=== PATIENT | female | born 1990 | race Caucasian/White ===

== ENCOUNTER 2016-05-14 12:05 | Emergency (ER) | payer OTHER ==
[~2016-05-14 12:05] MED LIST: DIPH25TA PO; DOCU100C8 PO; IBUP400T22 PO; MAGN300S PO; MUPI15CR TOP; NEOM10SO4 OT; ONDA4TAB9 PO; PHEN32.417 PO; POLY17PO2 PO; RANI150C4 PO
[2016-05-14 12:18] VITALS: BP 117/46; PULSE 93; RESP 18; O2SAT 97
[2016-05-14 13:36] LABS: BASOPHILS % (AUTO) 0.2 % (0-3); EOSINOPHILS % (AUTO) 2.4 % (0-5); MONOCYTES % (AUTO) 12.9 % (4-12); Mean Corpuscular Hemoglobin 31.3 pg (27.0-35.0); Mean Corpuscular Volume 93.5 fL (81-100); Platelet Count 283 bil/L (150-400)
[2016-05-14 13:51] LABS: APPEARANCE,URINE SLIGHTLY CLOUDY (CLEAR,HAZY); COLOR,URINE STRAW (YELLOW)
[2016-05-14 13:52] LABS: OCCULT BLOOD,URINE MODERATE (NEGATIVE); PH,URINE 8.5 (5.0-8.0); UROBILINOGEN,URINE NORMAL (NORMAL)
--- NOTE | 2016-05-14 13:52 | DRSVH ---
PROCEDURE: X-RAY CHEST ONE VIEW, PORTABLE ([id number]) INDICATIONS: multiple seizures, eval for underlying infection TECHNIQUE: One view of the chest was acquired. COMPARISON: None. FINDINGS: Surgical changes and devices: None. Lungs and pleura: No pleural effusions or pneumothorax. Lungs are clear. Mediastinum: Mediastinal contours appear normal. Heart size is normal. Bones and chest wall: No suspicious bony lesions. Overlying soft tissues appear unremarkable. IMPRESSION: No acute cardiopulmonary findings. Dictated by: Ellen Maza M.D. on 05/14/2016 at 13:50 Approved by: Ellen Maza M.D. on 05/14/2016 at 13:50
--- NOTE | 2016-05-14 14:01 | ED.REPORT ---
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 Mother also reports multiple seizure episodes since her arrival in the department today. Additionally, she notes urinary frequency, and foul smelling urine. Recently the patient was on a course of azithromycin. Nursing Notes Stated Complaint: SEIZURE Chief Complaint: Seizure Nursing Notes Reviewed: Yes Allergies: Coded Allergies: lorazepam (Verified Allergy, Mild, 09/20/15) Uncoded Allergies: CT CONTRAST (Allergy, Unknown, 09/20/15) Scheduled Levetiracetam Liquid (Keppra Liquid) 100 Mg/Ml Soln 500 MG PO BID Mupirocin Cream (Bactroban Cream) 15 Gm Cream..g. 1 APPL TOP TID Neomycin/Polymyxin B Sulf/Hc (Cortisporin Ear Solution) 10 Ml Solution 10 ML OT TID Phenobarbital (Phenobarbital) 32.4 Mg Tablet 32.4 MG PO DAILY Ranitidine (Ranitidine) 150 Mg Capsule 150 MG PO DAILY Sulfamethoxazole/Trimethoprim Susp (Bactrim 800-160 mg/20 ml Nayana) 800 Mg-160 Mg/ 20 Ml Oral.susp 20 ML PO BID Scheduled PRN Diphenhydramine HCl (Benadryl Allergy) 25 Mg Tablet 25 MG PO Q4 PRN PRN For Itching Docusate Sodium (Docusate Sodium) 100 Mg Capsule 100 MG PO DAILY PRN PRN For Constipation Ibuprofen (Ibuprofen) 400 Mg Tablet 400 MG PO QID PRN PRN For Pain Magnesium Citrate (Citrate of Magnesia) 300 Ml Solution 15 ML PO BID PRN PRN CONSTIPATION Ondansetron ODT (Zofran ODT) 4 Mg Tablet 4 MG PO Q4H PRN PRN For Nausea Polyethylene Glycol 3350 (Polyethylene Glycol 3350) 17 Gm Powd.pack 17 GM PO DAILY PRN PRN For Constipation General Time Seen by Provider: 14:00 Chief Complaint Chief Complaint: Seizure, generalized Hx Obtained From: Other family... (Mother) Arrived By: Ambulance Onset Occurred: Just prior to arrival Symptom Duration: Intermittent Related History: Reports: Developmental abnormality (Angelman syndrome), Known seizure disorder Similar Sx Previous: Yes Past Medical History Past Medical History Notes: PCP: Dr. Rebollar Pt seen in ED 08/30 an 09/02/15 for abd symptoms and probable constipation Past Medical History Angelman syndrome Seizures Significant developmental delay Chronic constipation Reports: Depression Past Surgical History Report none Smoking History Never Smoker Social History Alcohol Use: Denies alcohol use Drug Use: Denies drug use Ambulatory Status Wheelchair Review of Systems ROS is limited due to patient's developmental delay. Neurologic: Reports: Seizure Complete sys rev & neg: except as marked. Female: Reports: Urinary frequency Physical Exam Physical examination limited due to patient's developmental delay. Initial Vital Signs Vital Signs (First) Date Time Temp Pulse Resp B/P Pulse Ox O2 Delivery O2 Flow Rate FiO2 05/14/16 12:18 37.2 93 18 117/46 97 Room Air Initial VS: Reviewed Head / Eyes: Atraumatic, Normocephalic Abdomen / GI: Soft, Non-tender, No guarding, No rebound, No distention Extremities: Vascular intact, Neuro intact, No swelling, No tenderness Skin: Warm, Dry, No cyanosis General/Constitutional: Awake, Alert, Well nourished Neck: Supple, No meningismus, Full range of motion, No swelling, Non-tender Respiratory / Chest: Breath sounds NL, Breath sounds = bilat, No respiratory distress, No rales, No rhonchi, No wheezing Cardiovascular: Heart rate NL, Regular rhythm, Heart sounds NL, Peripheral circulation NL NEUROLOGIC: Patient at baseline, per mother. Transient 2 -second episode that Mother called seizure, with no post-ictal phase. Interpretation & Diagnostics Lab Results Interpretation Result Diagram: 05/14/16 1320 05/14/16 1320 Test 05/14/16 13:20 05/14/16 13:29 05/14/16 13:36 White Blood Count 4.2th/mm3 (3.8-10.1) Red Blood Count 4.44mil/mm3 (3.90-5.20) Hemoglobin 13.9g/dL (12.0-15.6) Hematocrit 41.5% (35.0-46.0) Mean Corpuscular Volume 93.5fL (81-100) Mean Corpuscular Hemoglobin 31.3pg (27.0-35.0) Mean Corpuscular Hemoglobin Concent 33.5% (32.0-37.0) Red Cell Distribution Width 12.4% (12.3-15.4) Platelet Count 283bil/L (150-400) Neutrophils (%) (Auto) 37.0% (40-74) Lymphocytes (%) (Auto) 47.0% (14-46) Monocytes (%) (Auto) 12.9% (4-12) Eosinophils (%) (Auto) 2.4% (0-5) Basophils (%) (Auto) 0.2% (0-3) Sodium Level 145mEq/L (134-144) Potassium Level 3.7mEq/L (3.5-5.2) Chloride Level 101mEq/L (97-108) Carbon Dioxide Level 30mmol/L (18-29) Blood Urea Nitrogen 9mg/dL (6-20) Creatinine 0.50mg/dL (0.57-1.00) Estimat Glomerular Filtration Rate 215mL/min (>59) Glucose Level 90mg/dL (60-99) Calcium Level 9.2mg/dL (8.5-10.1) Total Bilirubin 0.2mg/dL (0.0-1.2) Aspartate Amino Transf (AST/SGOT) 14U/L (0-50) Alanine Aminotransferase (ALT/SGPT) 15U/L (0-32) Alkaline Phosphatase 82U/L (25-150) Total Protein 7.4g/dL (6.4-8.4) Albumin 4.3g/dL (3.4-5.0) Phenobarbital Level 46.5ug/mL (15.0-40.0) Hold Mtz Top Tube Received (Received) Urine Color Straw (YELLOW) Urine Appearance Slightly cloudy Urine pH 8.5 (5.0-8.0) Urine Specific [place] 1.015 (1.003-1.035) Urine Protein Negativemg/dL (NEG,TRACE) Urine Glucose (UA) Negativemg/dL (NEGATIVE) Urine Ketones Negativemg/dL (NEGATIVE) Urine Occult Blood Moderate (NEGATIVE) Urine Nitrite Negative (NEGATIVE) Urine Bilirubin Negative (NEGATIVE) Urine Urobilinogen Normalmg/dL (NORMAL) Urine Leukocyte Esterase Small (NEGATIVE) Urine RBC 0-2/hpf (0-2) Urine WBC 6-10/hpf (0-5) Urine Epithelial Cells Occasional/hpf (NONE-MOD) Urine Crystals None seen (NONE SEEN) Urine Bacteria Moderate/hpf (NONE-FEW) Urine Hyaline Casts None/lpf (NONE) Urine Granular Casts None seen (NONE SEEN) Urine Waxy Casts None seen (NONE SEEN) Urine Red Blood Cell Casts None seen (NONE SEEN) Urine White Blood Cell Casts None seen (NONE SEEN) Urine Mucus None seen (None Seen) Urine Trichomonas None seen (NONE SEEN) Urine Yeast None (NONE SEEN) Urinalysis Comment None Urine Culture Reflexed Indicated X-Ray Chest Interpretation Chest Xray Interpretation: IMPRESSION: No acute cardiopulmonary findings. Dictated by: Ellen Maza M.D. on 05/14/2016 at 13:50 Approved by: Ellen Maza M.D. on 05/14/2016 at 13:50 View: Portable, 1 view Interpretation / Wet Read by: Interpret - Radiologist Re-Eval/Medical Decision Med Decision/Clinical Course Well-known seizure history with history of seizures, potentially urinary tract infection as found on a catheterized UA specimen. Patient will be also started on Keppra due to probable breakthrough seizures is not status epilepticus. Bactrim prescribed as well. Return precautions given. Source of Hx: Old records Re-Evaluation/Progress #1: Time of Eval: 14:21 Re-Evaluation/Progress Note: Discussed lab and radiology results with patient's mother. Re-Evaluation/Progress #2: Time of Eval: 14:41 Re-Evaluation/Progress Note: Discussed consult with Dr. Gomez, Neurology, and plan to discharge. Mother understands and agrees to the plan. Return precautions given. All other questions addressed. Consultation : Referral / Consult Name: Serge Gomez MD Consulted With: Neurology Call Returned at: 14:39 Note: Give Keppra 1g, then 500mg bid. Counseled Regarding: Diagnosis, Lab results, Need for follow-up, When/why to return to ED Discharge & Departure Impression: Primary Impression: UTI (urinary tract infection) Additional Impression: Seizure Disposition: Home Discharge Condition All VS Reviewed: Yes Condition: Stable Additional Instructions: Use Keppra to help prevent further seizures. Use Bactrim for UTI. Return to the ER for persistent, uncontrollable seizures without return to normal baseline , high fever, persistent vomiting, or other concerns. Referrals: Marquita Khan PA-C (PCP) Scribe Attestation Portions of this note were transcribed by Say Zamora. I, Dr. Sanders, personally performed the history, physical exam and medical decision-making; I reviewed and confirmed the accuracy of the information in the transcribed note. Signed by: Miriam Jarrell, 05/14/2016 and 14:57. copies to: Marquita Khan PA-C, Timothy S DO May 14, 2016 14:01 SAY ZAMORA May 14, 2016 14:14
[2016-05-14] MEDS ORDERED: Trimeth-Sulfa 160-800 mg/20 mL - 20 mL Suspension PO ONE (14:45)
[2016-05-14] MEDS ORDERED: SULF20OR7 PO (14:55)
[2016-05-14] MEDS ORDERED: LEVE100S PO (14:55)
[2016-05-14 15:20] VITALS: BP 116/68; PULSE 78; RESP 18; O2SAT 99
[2016-05-14 15:57] VITALS: BP 116/68; PULSE 78; RESP 18; O2SAT 99
== END 2016-05-14 15:58 | disposition home or self-care (01) ==
LOC: SED 12:05 → EDBD 12:05 → SED 15:58
DX: N39.0 Urinary tract infection, site not specified (principal); R56.9 Unspecified convulsions; Z88.8 Allergy status to other drugs, medicaments and biological substances

== ENCOUNTER 2016-05-28 16:19 | Emergency (ER) | payer OTHER ==
[~2016-05-28] VITALS: Ht 144.8 cm; Wt 50.0 kg
[~2016-05-28 16:19] MED LIST changes: +LEVE100S PO; +SULF20OR7 PO
[2016-05-28 16:23] VITALS: BP 128/72; PULSE 88; RESP 16; O2SAT 98
--- NOTE | 2016-05-28 16:35 | ED.REPORT ---
HPI- Female Date of Service May 28, 2016 ED Provider: Orquidea Rosas MD Patient is as 25-year-old female with a history of seizures and Angelman syndrome presents to the ER sent from Urgent Care who declined to see her due to need for cath UA. She was last seen at the ED 13 days ago due to multiple seizure episodes, at which time it was thought she had a UTI but was later diagnosed as e-coli. Her PCP Marquita Khan stated the e-coli UTI has been resistant to sulfa and Augmentin and to get a repeat UA. Via patient's mother, she has not been eating, drinking, and her skin temperature has been very cold. She was started on Keppra 13 days ago day at 5ml twice a day and 10 ml Augmentin twice a day and has had 7 doses so far. Patient is nonverbal at baseline. Nursing Notes Stated Complaint: POSSIBLE UTI Chief Complaint: General Complaint Nursing Notes Reviewed: Yes Allergies: Coded Allergies: lorazepam (Verified Allergy, Mild, 05/28/16) Uncoded Allergies: CT CONTRAST (Allergy, Unknown, 09/20/15) Scheduled Levetiracetam Liquid (Keppra Liquid) 100 Mg/Ml Soln 500 MG PO BID Mupirocin Cream (Bactroban Cream) 15 Gm Cream..g. 1 APPL TOP TID Neomycin/Polymyxin B Sulf/Hc (Cortisporin Ear Solution) 10 Ml Solution 10 ML OT TID Phenobarbital (Phenobarbital) 32.4 Mg Tablet 32.4 MG PO DAILY Ranitidine (Ranitidine) 150 Mg Capsule 150 MG PO DAILY Sulfamethoxazole/Trimethoprim Susp (Bactrim 800-160 mg/20 ml Nayana) 800 Mg-160 Mg/ 20 Ml Oral.susp 20 ML PO BID Scheduled PRN Diphenhydramine HCl (Benadryl Allergy) 25 Mg Tablet 25 MG PO Q4 PRN PRN For Itching Docusate Sodium (Docusate Sodium) 100 Mg Capsule 100 MG PO DAILY PRN PRN For Constipation Ibuprofen (Ibuprofen) 400 Mg Tablet 400 MG PO QID PRN PRN For Pain Magnesium Citrate (Citrate of Magnesia) 300 Ml Solution 15 ML PO BID PRN PRN CONSTIPATION Ondansetron ODT (Zofran ODT) 4 Mg Tablet 4 MG PO Q4H PRN PRN For Nausea Polyethylene Glycol 3350 (Polyethylene Glycol 3350) 17 Gm Powd.pack 17 GM PO DAILY PRN PRN For Constipation General Time Seen by MD: 16:34 Chief Complaint Urinary catheter problem Hx Obtained From: Other family... (Mother) Arrived By: Walk-in Sudden in Onset?: Yes Onset Occurred: 1 day ago Symptom Duration: Since onset Severity: Current: No pain currently Recent Healthcare: Recent doctor visit, Recent hospitalization Similar Sx Previous: Yes Past Medical History Past Medical History Notes: PCP: Dr. Rebollar Pt seen in ED 08/30 an 09/02/15 for abd symptoms and probable constipation Past Medical History Angelman syndrome Seizures Significant developmental delay Chronic constipation Reports: Depression Past Surgical History Report none Smoking History Never Smoker Social History Alcohol Use: Denies alcohol use Drug Use: Denies drug use Other Social History: Good social support Ambulatory Status Wheelchair Review of Systems Review of Systems Note: Via patient's mother, "not eating, not drinking, skin temperature very cold" Unable to Obtain ROS Patient condition Physical Exam Initial Vital Signs Vital Signs (First) Date Time Temp Pulse Resp B/P Pulse Ox O2 Delivery O2 Flow Rate FiO2 05/28/16 16:23 37.2 88 16 128/72 98 Room Air Initial VS: Reviewed Head / Eyes: Atraumatic, Normocephalic, PERRL ENT: Mucous membranes moist, Conjunctiva normal, No scleral icterus Neck: Supple, Non-tender, Full range of motion Respiratory: Breath sounds normal, Clear to auscultation, No respiratory distress Cardiovascular: Regular rate & rhythm, Heart sounds normal, Intact distal pulses Abdomen / GI: Soft, Non-tender, No guarding, No rebound, No distention Back: No CVA tenderness Skin: Warm, Dry, No cyanosis Psychiatric: Mood/affect normal, Behavior normal, Normal thought content Female Genitourinary: No bleeding, No discharge, No cervical motion tend General/Constitutional: Awake, Alert, No acute distress Lower Extremity / Pelvis / MS: No edema muscle atrophy Neurologic: No motor deficits alert periodically moans non-verbal Interpretation & Diagnostics Lab Results Interpretation Result Diagram: 05/28/16 1725 05/28/16 1725 Test 05/28/16 17:25 05/28/16 18:22 White Blood Count 6.4th/mm3 (3.8-10.1) Red Blood Count 4.24mil/mm3 (3.90-5.20) Hemoglobin 13.2g/dL (12.0-15.6) Hematocrit 39.8% (35.0-46.0) Mean Corpuscular Volume 93.9fL (81-100) Mean Corpuscular Hemoglobin 31.1pg (27.0-35.0) Mean Corpuscular Hemoglobin Concent 33.2% (32.0-37.0) Red Cell Distribution Width 12.2% (12.3-15.4) Platelet Count 277bil/L (150-400) Neutrophils (%) (Auto) 48.1% (40-74) Lymphocytes (%) (Auto) 37.9% (14-46) Monocytes (%) (Auto) 12.1% (4-12) Eosinophils (%) (Auto) 1.4% (0-5) Basophils (%) (Auto) 0.3% (0-3) Sodium Level 140mEq/L (134-144) Potassium Level 4.3mEq/L (3.5-5.2) Chloride Level 100mEq/L (97-108) Carbon Dioxide Level 27mmol/L (18-29) Blood Urea Nitrogen 14mg/dL (6-20) Creatinine 0.47mg/dL (0.57-1.00) Estimat Glomerular Filtration Rate 231mL/min (>59) Glucose Level 88mg/dL (60-99) Calcium Level 8.8mg/dL (8.5-10.1) Urine Color Yellow (YELLOW) Urine Appearance Clear (CLEAR,HAZY) Urine pH 7.5 (5.0-8.0) Urine Specific [place] 1.010 (1.003-1.035) Urine Protein Negativemg/dL (NEG,TRACE) Urine Glucose (UA) Negativemg/dL (NEGATIVE) Urine Ketones Negativemg/dL (NEGATIVE) Urine Occult Blood Negative (NEGATIVE) Urine Nitrite Negative (NEGATIVE) Urine Bilirubin Negative (NEGATIVE) Urine Urobilinogen Normalmg/dL (NORMAL) Urine Leukocyte Esterase Negative (NEGATIVE) Urine RBC 0-2/hpf (0-2) Urine WBC 0-5/hpf (0-5) Urine Epithelial Cells None/hpf (NONE-MOD) Urine Crystals None seen (NONE SEEN) Urine Bacteria None/hpf (NONE-FEW) Urine Hyaline Casts None/lpf (NONE) Urine Granular Casts None seen (NONE SEEN) Urine Waxy Casts None seen (NONE SEEN) Urine Red Blood Cell Casts None seen (NONE SEEN) Urine White Blood Cell Casts None seen (NONE SEEN) Urine Mucus None seen (None Seen) Urine Trichomonas None seen (NONE SEEN) Urine Yeast None (NONE SEEN) Urinalysis Comment None Urine Culture Reflexed Not indicated Re-Eval/Medical Decision Med Decision/Clinical Course Mother's concern that the patient is not improving after she was switched to appropriate antibiotic. She was also wondering if her symptoms be related to the new medication she is on, she started Keppra recently. The patient is nonverbal and so labs and urine were obtained. She has not had any signs of urinary tract infection therefore her symptoms are likely related to the new medication. The mother was told to continue the medication and if she does not start to improve to discuss changing the dosage but her neurologist. Re-Evaluation/Progress : Time of Eval: 19:13 Re-Evaluation/Progress Note: Pt rechecked. Informed pt of diagnosis of adverse medication side effect and plan for treatment. Pt understands and agrees with plan. F/U and RTER warnings given. All questions addressed. Counseled Regarding: Diagnosis, Lab results, Need for follow-up, When/why to return to ED Discharge & Departure Impression: Primary Impression: Adverse effects of medication Encounter type: initial encounter Qualified Code: T88.7XXA - Unspecified adverse effect of drug or medicament, initial encounter Disposition: Home Discharge Condition All VS Reviewed: Yes Condition: Stable Additional Instructions: Thank you for coming to the Emergency Department today. You do not have a urinary tract infection. Make sure you finish your course of antibiotics, they are working. Talk to your urologist if your symptoms do not improve. Your symptoms are likely related to Keppra. Return to the Emergency Department for any new or worsening symptoms. We hope you feel better soon! Referrals: Marquita Khan PA-C (PCP) Jeffy Attestation Portion of this note were transcribed by Yris Ruvalcaba. I, Dr. Rosas, personally performed the history, physical exam, and medical decision-making: I reviewed and confirmed the accuracy for the information in the transcribed note. Signed by: jeffy Crockett, 05/28/16 [id number] copies to: Marquita Khan PA-C, Jena M MD May 28, 2016 16:34 YRIS RUVALCABA May 28, 2016 16:42
[2016-05-28] MEDS ORDERED: 0.9% Sodium Chloride 1,000 ML IV ONE (16:50)
[2016-05-28 17:50] LABS: BASOPHILS % (AUTO) 0.3 % (0-3); EOSINOPHILS % (AUTO) 1.4 % (0-5); MONOCYTES % (AUTO) 12.1 % (4-12); Mean Corpuscular Hemoglobin 31.1 pg (27.0-35.0); Mean Corpuscular Volume 93.9 fL (81-100); NEUTROPHILS % (AUTO) 48.1 % (40-74); Platelet Count 277 bil/L (150-400)
[2016-05-28 18:37] LABS: APPEARANCE,URINE CLEAR (CLEAR,HAZY); COLOR,URINE YELLOW (YELLOW); OCCULT BLOOD,URINE NEGATIVE (NEGATIVE); PH,URINE 7.5 (5.0-8.0)
[2016-05-28 18:38] LABS: UROBILINOGEN,URINE NORMAL (NORMAL)
== END 2016-05-28 19:20 | disposition home or self-care (01) ==
LOC: SED 16:19
DX: G40.909 Epilepsy, unspecified, not intractable, without status epilepticus (principal); R63.0 Anorexia; T42.75XA Adverse effect of unspecified antiepileptic and sedative-hypnotic drugs, initial encounter; X58.XXXA Exposure to other specified factors, initial encounter; Y92.9 Unspecified place or not applicable; Y93.9 Activity, unspecified; Y99.9 Unspecified external cause status; Q93.5 Other deletions of part of a chromosome; Z88.5 Allergy status to narcotic agent; Z91.041 Radiographic dye allergy status
CPT/HCPCS: 36415; 80048; 81000; 85025; 96361; 96374; 99285; J2250; J7030

== ENCOUNTER 2016-11-04 13:02 | Emergency (ER) | payer OTHER ==
[~2016-11-04] VITALS: Ht 137.2 cm; Wt 61.4 kg
[~2016-11-04 13:02] MED LIST changes: -MAGN300S PO; +[UNRECOGNIZED DRUG - CODE] PO
[2016-11-04 13:08] VITALS: BP 118/79; PULSE 91; RESP 16; O2SAT 100
--- NOTE | 2016-11-04 13:28 | ED.REPORT ---
HPI-General Illness Date of Service Nov 04, 2016 ED Provider: Cirilo Sanders DO The patient is a 26 year old female with history of Angelman's syndrome, significant developmental delay, chronic constipation, recurrent UTIs, and seizures, who was brought to the emergency department by her mother who is concerned the patient has a UTI. Over the last few days the patient has had discolored urine and increased urinary frequency. The patient has had similar symptoms in the past. Her mother tried to take her to urgent care but they refused to see her there. The patient is unable to provide any history due to her baseline mental status. Nursing Notes Stated Complaint: POSS E COLI,UTI,WISDOM TEETH PAIN Chief Complaint: Female Abdominal Pain Nursing Notes Reviewed: Yes Allergies: Coded Allergies: lorazepam (Verified Allergy, Mild, 11/04/16) Uncoded Allergies: CT CONTRAST (Allergy, Unknown, 09/20/15) Scheduled Amoxicillin/Clav K 125-31.25 mg Susp (Augmentin 125-31.25 mg Susp) 125 Mg/5 Ml Susp.recon 35 ML PO BID Levetiracetam Liquid (Keppra Liquid) 100 Mg/Ml Soln 500 MG PO BID Mupirocin Cream (Bactroban Cream) 15 Gm Cream..g. 1 APPL TOP TID Neomycin/Polymyxin B Sulf/Hc (Cortisporin Ear Solution) 10 Ml Solution 10 ML OT TID Phenobarbital (Phenobarbital) 32.4 Mg Tablet 32.4 MG PO DAILY Ranitidine (Ranitidine) 150 Mg Capsule 150 MG PO DAILY Sulfamethoxazole/Trimethoprim Susp (Bactrim 800-160 mg/20 ml Nayana) 800 Mg-160 Mg/ 20 Ml Oral.susp 20 ML PO BID Scheduled PRN Diphenhydramine HCl (Benadryl Allergy) 25 Mg Tablet 25 MG PO Q4 PRN PRN For Itching Docusate Sodium (Docusate Sodium) 100 Mg Capsule 100 MG PO DAILY PRN PRN For Constipation Ibuprofen (Ibuprofen) 400 Mg Tablet 400 MG PO QID PRN PRN For Pain Ibuprofen (Ibuprofen) 600 Mg Tablet 600 MG PO QID PRN PRN For Pain Magnesium Citrate (Citrate of Magnesia) 300 Ml Solution 15 ML PO BID PRN PRN CONSTIPATION Ondansetron ODT (Zofran ODT) 4 Mg Tablet 4 MG PO Q4H PRN PRN For Nausea Polyethylene Glycol 3350 (Polyethylene Glycol 3350) 17 Gm Powd.pack 17 GM PO DAILY PRN PRN For Constipation General Time Seen by MD: 13:27 Chief Complaint Other (UTI symptoms) Hx Obtained From: Other family... (Mother) Unable to Obtain Hx: Patient condition, Mental status Arrived By: Wheelchair Sudden in Onset?: No Onset Occurred: 3 days ago Symptom Duration: Since onset Quality: Painful Severity: Current: Moderate Severity: Maximum: Moderate Recent Healthcare: No recent hospitalization Similar Sx Previous: Yes Past Medical History Past Medical History Notes: PCP: Marquita Khan Past Medical History Angelman syndrome Seizures Significant developmental delay Chronic constipation Reports: Depression Past Surgical History Report none Smoking History Never Smoker Social History Alcohol Use: Denies alcohol use Drug Use: Denies drug use Other Social History: Good social support Ambulatory Status Wheelchair Review of Systems +discolored urine Unable to Obtain ROS Patient condition, Mental status Full Review of Systems Female: Reports: Urinary frequency, Urination increased Physical Exam Vital Signs Vital Signs Date Time Temp Pulse Resp B/P Pulse Ox O2 Delivery O2 Flow Rate FiO2 11/04/16 14:55 88 17 100 Room Air 11/04/16 13:08 37.0 91 16 118/79 100 Room Air Initial VS: Reviewed Head / Eyes: Atraumatic, Normocephalic, PERRL ENT: Mucous membranes moist, Conjunctiva normal, No scleral icterus Neck: Supple, Non-tender, Full range of motion Respiratory: Breath sounds normal, Clear to auscultation, No respiratory distress Cardiovascular: Regular rate & rhythm, Heart sounds normal, Intact distal pulses Abdomen / GI: Soft, Non-tender, No guarding, No rebound, No distention Lymphatic: No lymphadenopathy Extremities: Vascular intact, Neuro intact, No swelling, No tenderness Skin: Warm, Dry, No cyanosis Neurologic: Nonfocal Psychiatric: Mood/affect normal, Behavior normal General/Constitutional: Awake Developmentally delayed Interpretation & Diagnostics Lab Results Interpretation Test 11/04/16 14:21 Urine Color Straw (YELLOW) Urine Appearance Clear (CLEAR,HAZY) Urine pH 6.5 (5.0-8.0) Urine Specific [place] 1.020 (1.003-1.035) Urine Protein Negativemg/dL (NEG,TRACE) Urine Glucose (UA) Negativemg/dL (NEGATIVE) Urine Ketones Negativemg/dL (NEGATIVE) Urine Occult Blood Negative (NEGATIVE) Urine Nitrite Negative (NEGATIVE) Urine Bilirubin Negative (NEGATIVE) Urine Urobilinogen Normalmg/dL (NORMAL) Urine Leukocyte Esterase Negative (NEGATIVE) Urine RBC 0-2/hpf (0-2) Urine WBC 0-5/hpf (0-5) Urine Epithelial Cells Occasional/hpf (NONE-MOD) Urine Crystals None seen (NONE SEEN) Urine Bacteria Moderate/hpf (NONE-FEW) Urine Hyaline Casts None/lpf (NONE) Urine Granular Casts None seen (NONE SEEN) Urine Waxy Casts None seen (NONE SEEN) Urine Red Blood Cell Casts None seen (NONE SEEN) Urine White Blood Cell Casts None seen (NONE SEEN) Urine Mucus None seen (None Seen) Urine Trichomonas None seen (NONE SEEN) Urine Yeast None (NONE SEEN) Urinalysis Comment None Urine Culture Reflexed Indicated Re-Eval/Medical Decision Med Decision/Clinical Course Concern for UTI. Patient does not have white blood cells in her urine however on a cath UA there is moderate amount of bacteria. This along with a constellation of symptoms according to the mother, it seems reasonable to start Augmentin. We will also prescribe ibuprofen for the dental pain. Return and follow-up precautions given. Source of Hx: Old records, Family Time of Eval: 13:40 Re-Evaluation/Progress Note: Her mother would not like to have the patient sedated for the catheter. Time of Eval: 14:46 Re-Evaluation/Progress Note: Rechecked the patient. Discussed plan for discharge with her mother. All questions were addressed. Counseled Regarding: Diagnosis, Lab results, Need for follow-up, When/why to return to ED Discharge & Departure Primary Impression: Urinary tract infection Urinary tract infection type: site unspecified Hematuria presence: without hematuria Qualified Code: N39.0 - Urinary tract infection, site not specified Disposition: Home Discharge Condition All VS Reviewed: Yes Condition: Stable Patient Instructions: Urinary Tract Infection in Women (ED) Additional Instructions: Thank you for entrusting us with Nicol's care today. Her urinalysis does show evidence of a urinary tract infection. Use the antibiotics as prescribed. Make sure she is drinking plenty of fluids. Followup with her regular doctor next week for re-evaluation. Return to the emergency department for any new or concerning symptoms. Referrals: Marquita Khan PA-C (PCP) Scribe Attestation Portions of this note were transcribed by Farida Cabrera. I, Dr. Sanders personally performed the history, physical exam and medical decision-making; I reviewed and confirmed the accuracy of the information in the transcribed note. Signed by: Miriam Tompkins, 11/04/16 at 1500. copies to: Marquita Khan PA-C, Timothy S DO Nov 04, 2016 13:28 Farida Cabrera Nov 04, 2016 13:42
[2016-11-04 14:39] LABS: APPEARANCE,URINE CLEAR (CLEAR,HAZY); COLOR,URINE STRAW (YELLOW); OCCULT BLOOD,URINE NEGATIVE (NEGATIVE); PH,URINE 6.5 (5.0-8.0); UROBILINOGEN,URINE NORMAL (NORMAL)
[2016-11-04] MEDS ORDERED: IBUP-1827 PO (14:50)
[2016-11-04] MEDS ORDERED: [UNRECOGNIZED DRUG - CODE] PO (14:50)
[2016-11-04 14:55] VITALS: PULSE 88; RESP 17; O2SAT 100
[2016-11-07] MEDS ORDERED: SULF1TAB7 PO (08:48)
== END 2016-11-04 14:57 | disposition home or self-care (01) ==
LOC: SED 13:02
DX: N39.0 Urinary tract infection, site not specified (principal); B96.20 Unspecified Escherichia coli [E. coli] as the cause of diseases classified elsewhere; F32.9 Major depressive disorder, single episode, unspecified; Z88.5 Allergy status to narcotic agent

== ENCOUNTER 2017-01-04 08:19 | Inpatient (IN) | payer OTHER, MEDICAID ==
[2017-01-04] VITALS (10 sets, daily range): BP systolic 107–147; BP diastolic 52–93; PULSE 119–143; RESP 12–20; O2SAT 96–100
[~2017-01-04] VITALS: Ht 142.2 cm; Wt 48.0 kg
[~2017-01-04 08:19] MED LIST changes: +IBUP-1827 PO; +SULF1TAB7 PO; +[UNRECOGNIZED DRUG - CODE] PO; +[UNRECOGNIZED DRUG - CODE] PO; -[UNRECOGNIZED DRUG - CODE] PO
--- NOTE | 2017-01-04 08:22 | ED.REPORT ---
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 Associated symptoms include decreased ROM of jaw. Per mother, she is not experiencing vomiting, fever, or any other symptoms. Pt had her liquid keppra, oxycodone, and Ibuprofen this morning. Pt's mother called and was told to return for re-evaluation but pt's mother did not want to make the drive down to [place]. Per records, she was intubated orally, not nasally. Nursing Notes Stated Complaint: FACIAL SWELLING,NOSE BLEED,(POST SURGERY) Nursing Notes Reviewed: Yes Allergies: Coded Allergies: lorazepam (Verified Allergy, Mild, 11/04/16) Uncoded Allergies: CT CONTRAST (Allergy, Unknown, 09/20/15) Scheduled Amoxicillin/Clav K 125-31.25 mg Susp (Augmentin 125-31.25 mg Susp) 125 Mg/5 Ml Susp.recon 35 ML PO BID Levetiracetam Liquid (Keppra Liquid) 100 Mg/Ml Soln 500 MG PO BID Mupirocin Cream (Bactroban Cream) 15 Gm Cream..g. 1 APPL TOP TID Neomycin/Polymyxin B Sulf/Hc (Cortisporin Ear Solution) 10 Ml Solution 10 ML OT TID Phenobarbital (Phenobarbital) 32.4 Mg Tablet 32.4 MG PO DAILY Ranitidine (Ranitidine) 150 Mg Capsule 150 MG PO DAILY Sulfamethoxazole/Trimethoprim Susp (Bactrim 800-160 mg/20 ml Nayana) 800 Mg-160 Mg/ 20 Ml Oral.susp 20 ML PO BID Scheduled PRN Diphenhydramine HCl (Benadryl Allergy) 25 Mg Tablet 25 MG PO Q4 PRN PRN For Itching Docusate Sodium (Docusate Sodium) 100 Mg Capsule 100 MG PO DAILY PRN PRN For Constipation Ibuprofen (Ibuprofen) 400 Mg Tablet 400 MG PO QID PRN PRN For Pain Ibuprofen (Ibuprofen) 600 Mg Tablet 600 MG PO QID PRN PRN For Pain Magnesium Citrate (Citrate of Magnesia) 300 Ml Solution 15 ML PO BID PRN PRN CONSTIPATION Ondansetron ODT (Zofran ODT) 4 Mg Tablet 4 MG PO Q4H PRN PRN For Nausea Polyethylene Glycol 3350 (Polyethylene Glycol 3350) 17 Gm Powd.pack 17 GM PO DAILY PRN PRN For Constipation Sulfamethoxazole/Trimeth 800-160 mg (Bactrim DS) 1 Each Tablet 1 TABLET PO BID PRN PRN UTI General Time Seen by Provider: 08:21 Chief Complaint Nose bleed Hx Obtained From: Other family... (Mother) Arrived By: Ambulance Onset Occurred: 5 - 8 hours ago Symptom Duration: Since onset Progression Since Onset: Unchanged Immunizations: Unknown Recent Healthcare: Previous surgery Past Medical History Past Medical History Notes: PCP: Marquita Khan Past Medical History Angelman syndrome Seizures Significant developmental delay Chronic constipation Anxiety Reports: Depression Past Surgical History [place] tooth extraction Smoking History Never Smoker Social History Alcohol Use: Denies alcohol use Drug Use: Denies drug use Other Social History: Good social support Ambulatory Status Wheelchair Review of Systems Review of Systems Note: +mouth swelling, decreased ROM of jaw Constitutional: Denies: Fever Ears / Nose / Throat: Reports: Mouth pain Complete sys rev & neg: except as marked. GI: Denies: Vomiting Physical Exam Initial Vital Signs Vital Signs (First) Date Time Temp Pulse Resp B/P Pulse Ox O2 Delivery O2 Flow Rate FiO2 01/04/17 08:19 37.5 124 20 111/52 97 Room Air Initial VS: Reviewed, Vital signs abnormal Respiratory: No respiratory distress Skin: Warm, Dry Head / Eyes: Atraumatic ENT: Airway patent, No trismus oozing blood tinged saliva from mouth Opening and closing mouth independently bilateral mandibular swelling and bruising No edema or induration under tongue No active bleeding from nose, small amount of crusted blood in nares tonsils and uvula normal incision sites have mild oozing but no active bleeding Neck: Supple, Full range of motion Neurologic: No motor deficits Per mother, at baseline General/Constitutional: Awake, Alert Heart Rate / Rhythm: Positive: Tachycardia Upper Extremity / MS: Atraumatic Lower Extremity / Pelvis / MS: Atraumatic Interpretation & Diagnostics Lab Results Interpretation Result Diagram: 01/04/17 0945 01/04/17 0945 Test 01/04/17 09:45 White Blood Count 10.3th/mm3 (3.8-10.1) Red Blood Count 4.06mil/mm3 (3.90-5.20) Hemoglobin 12.9g/dL (12.0-15.6) Hematocrit 38.4% (35.0-46.0) Mean Corpuscular Volume 94.6fL (81-100) Mean Corpuscular Hemoglobin 31.8pg (27.0-35.0) Mean Corpuscular Hemoglobin Concent 33.6% (32.0-37.0) Red Cell Distribution Width 12.2% (12.3-15.4) Platelet Count 248bil/L (150-400) Neutrophils (%) (Auto) 68.5% (40-74) Lymphocytes (%) (Auto) 16.9% (14-46) Monocytes (%) (Auto) 14.1% (4-12) Eosinophils (%) (Auto) 0.3% (0-5) Basophils (%) (Auto) 0.1% (0-3) Sodium Level 139mEq/L (134-144) Potassium Level 3.8mEq/L (3.5-5.2) Chloride Level 101mEq/L (97-108) Carbon Dioxide Level 24mmol/L (18-29) Blood Urea Nitrogen 17mg/dL (6-20) Creatinine 0.52mg/dL (0.57-1.00) Estimat Glomerular Filtration Rate 204mL/min (>59) Glucose Level 92mg/dL (60-99) Calcium Level 9.2mg/dL (8.5-10.1) Total Bilirubin 0.4mg/dL (0.0-1.2) Aspartate Amino Transf (AST/SGOT) 16U/L (0-50) Alanine Aminotransferase (ALT/SGPT) 12U/L (0-32) Alkaline Phosphatase 87U/L (25-150) Total Protein 7.9g/dL (6.4-8.4) Albumin 4.5g/dL (3.4-5.0) Procedures Proced Mod Sedation/Analgesia No known problems with anesthesia Physician left room at 0945. Respiratory therapy still in attendance. Time: 09:32 Procedure Performed by: ED physician Consent / Setup: Informed consent provided, Consent from parent, Consent from guardian, Time-out performed, Hand hygiene observed Indication: Other (Examination) Preparation: bus driver/monitor applied, Pulse oximeter applied, Constant attendance, Eval last meal time, Supplemental oxygen, Procedure explained VS Prior to Procedure: All vital signs normal CVS/Resp Exam: Normal breath sounds, Normal heart sounds Sedation: Sedation: Ketamine Response During Procedure: Handled secretions adeq Complications During/After: None Reversal: None required Mental Status After Procedure: At patient's baseline Attestation: I performed sedation Re-Eval/Medical Decision Med Decision/Clinical Course Med Decision/Clinical Course: Exam under anesthesia is reassuring, patient's sockets look to be well-healing, no epistaxis posterior oropharynx normal. Patient has some small amount throwing with a blood tinge which is to be expected after surgery. However, this patient has a low-grade tachycardia which is persistent and since surgery yesterday mom has been unable to adequately hydrate the patient. Continues to have low-grade tachycardia after IV fluids and pain management. Also patient is unwilling to take any significant oral intake well in the ER. Given her inability to maintain hydration recommend admission for supplemental IV fluids, pain control, and further delineation as to the cause of her tachycardia if it continues despite IV hydration and pain management. Re-Evaluation/Progress #1: Time of Eval: 11:18 Re-Evaluation/Progress Note: Rechecked pt who is drinking more water. Discussed consult with oral surgeon and plan for discharge.Patient's mother understands and agrees with plan. All questions addressed at this time. Re-Evaluation/Progress #2: Time of Eval: 12:01 Re-Evaluation/Progress Note: Rechecked pt. Discussed options for d/c home v admission. Pt's mother would like pt admitted. Consultation #1: Call Returned at: 11:10 Note: Discussed pt's case with Dr. Rubens Chilel, pt's oral surgeon at . OK to give more pain meds and d/c home. Will f/u. Consultation #2: Referral / Consult Name: Belen Coe MD Consulted With: Hospitalist Call Returned at: 12:40 Hearing Aid Assembly Supervisor: Will see patient, Agrees with eval, Agrees with plan, Accepts admit Note: Discussed pt's case. Accepts admit. Counseled Regarding: Diagnosis, Lab results, Need for admission Discharge & Departure Impression: Primary Impression: Tachycardia Additional Impressions: Dehydration Angelman syndrome Disposition: ADMITTED TO HOSPITAL Discharge Condition All VS Reviewed: Yes Condition: Stable Referrals: Marquita Khan PA-C (PCP) Miriam Attestation Portions of this note were transcribed by Quique Lu. I, Dr. Sanders personally performed the history, physical exam and medical decision-making; I reviewed and confirmed the accuracy of the information in the transcribed note. Signed by: Miriam Snider, 01/04/17 copies to: Marquita Khan PA-C, Timothy S DO Jan 04, 2017 08:22 QUIQUE LU Jan 04, 2017 09:22
[2017-01-04] MEDS ORDERED: Ketamine 100 mg/mL 5 mL Inj IM ONE (09:10)
[2017-01-04] MEDS ORDERED: 0.9% Sodium Chloride 1,000 ML IV ONE (09:10)
[2017-01-04 10:54] LABS: BASOPHILS % (AUTO) 0.1 % (0-3); EOSINOPHILS % (AUTO) 0.3 % (0-5); MONOCYTES % (AUTO) 14.1 % (4-12); Mean Corpuscular Hemoglobin 31.8 pg (27.0-35.0); Mean Corpuscular Volume 94.6 fL (81-100); NEUTROPHILS % (AUTO) 68.5 % (40-74); Platelet Count 248 bil/L (150-400)
[2017-01-04] MEDS ORDERED: oxyCODONE 1 mg/mL 5 mL Liquid PO ONE ×2 (11:20→17:35)
[2017-01-04] MEDS: 0.9% Sodium Chloride 1,000 ML IV SCH ×2 (12:42→21:46)
[2017-01-04] MEDS ORDERED: NITR25CA2 PO (14:48)
[2017-01-04] MEDS ORDERED: ACET160S PO (14:48)
[2017-01-04] MEDS ORDERED: ibuprofen (14:48)
[2017-01-04] MEDS ORDERED: OXYC10SY PO (14:48)
--- NOTE | 2017-01-04 15:11 | PCM.HPMED ---
Subjective Date of Service Jan 04, 2017 Primary Provider: Admitting Physician: Belen Coe MD Primary Care Physician: Marquita Khan PA-C Attending Physician: Belen Coe MD Chief Complaint: Nosebleeding History of Present Illness: 26-year-old female with angelman syndrome, seizure disorder, baseline nonverbal presented after persistent epistaxis following wisdom teeth removal yesterday. As per her caregiver mother. Patient was in usual state of health until yesterday, patient underwent wisdom teeth removal under general anesthesia. Surgical report from , showed uneventful perioperative course. There was minimal bleeding, no respiratory compromise. Patient safely went home around 8 PM Report from US also showed that pt has supratherapeutic phenobarb level, keppra level was pending. However this morning patient woke up with persistent nosebleeding, quantify was unknown, but "not a lot". mother was concerned and called , recommended to come to the emergency department. However patient went to our facility ED given long distance, other fernandez mother didn't notice any other changes in her urine color or smell. taking macrobid for ppx as pt had 5UTI in the past. denied diarrhea rather constipated at baseline, required rectal suppository every 2-3days. there was no reported seizure. ED VS BP very stable 130/80, but [id number], 97% on RA, afebrile. pt received 1liter IVF. examined mouth and nose with ketamine given. no active bleeding noticed. labs showed stable cbc. no uremia, TFT WNL. Review of Systems: Pertinent positives as noted in history of present illness. All other systems were reviewed and are negative Allergies Coded Allergies: lorazepam (Verified Allergy, Mild, 11/04/16) Uncoded Allergies: CT CONTRAST (Allergy, Unknown, 09/20/15) Home Medications Ibuprofen Keppra Oxycodone Phenobarb PMH As described above in history of present illness Surgical History Several minor surgeries include ear, wisdom teeth pulled Family History no FHx of blood diathesis Social History Hx Alcohol Use: No Hx Substance Use: No Smoking Status: Never Smoker Additional Information lives with mother Exam Vital Signs Vital Sign - Last Date Time Temp Pulse Resp B/P Pulse Ox O2 Delivery O2 Flow Rate FiO2 01/04/17 14:33 37.5 122 18 124/86 98 Room Air Exam non-verbal, not diaphoretic, no JVD, no LAD, unable to open mouth, no bleeding externally nasally regular tachy, nl s1, s2 no mrg CTAB, no w,c S,ND,NT,normoactive BS+ warm, no edema, pulses 2/2 Lab and Diagnostics Result Diagram: 01/04/1794401/04/17944 Assessment & Plan Acute, active Persistent tachycardia, POA, likely sinus tachy, ddx: Post surgical pain response, possible bleeding from surgery/epistaxis, probable UTI based on previous hx,TSH WNL, -EKG, telemetry, if any abnormal episodes, get TTE -continue 100cc/hr NS, -cbc tomorrow AM -UA, UCX Chronic, stable Angelman syn, seizure d/o, resume home AEDs Dispo: Patient is admitted under observation status with expectation that she will be discharged within 24-48 hours, diet:general dvt ppx:SCD Full code Time spent 35min Belen Coe MD Jan 04, 2017 15:11
[2017-01-04] MEDS ORDERED: BISA10SU61 RC (16:01)
--- NOTE | 2017-01-04 16:32 | NUR ---
[place] [facility] [place] [facility] at 1400, NS 100, telemetry attached, minimal nose bleed, incontinence to urine, changed and gowned, Mother oriented to room and hospital policies. Med rec done and medications sent to pharmacy. Patient had wisdom teeth removed yesterday at , Hx of seizures, and developmental delay. Mother in room, patient appears dirty and in need of bath, sitter present so mother can have breaks.
[2017-01-04] MEDS ORDERED: oxyCODONE 1 mg/mL 5 mL Liquid PO SCH (17:35)
[2017-01-04] MEDS: Heparin 5,000 Unit/mL Inj SUBQ SCH (20:30)
[2017-01-04] MEDS: oxyCODONE 1 mg/mL 5 mL Liquid PO SCH ×2 (21:47→23:30)
[2017-01-04] MEDS ORDERED: LEVETIRACETAM 500 MG/5 ML PO SCH (22:04)
--- NOTE | 2017-01-04 22:16 | NUR ---
pain control patient moaning. crying out. flailing with arms. mom reports patient's pain in not in control notified Dr Muro. ordered oxycodone 10mg elixir . given. patient now quiet, head resting on pillow. will cont to monitor.
--- NOTE | 2017-01-04 22:26 | NUR ---
keppra clarification per mom home dose is 7ml pm and 4ml in the am. solution is 500mg/5ml (pharmacist win verified bottle concentration as it is checked into the pharmacy lock box) notified dr ireland of above.
[2017-01-04] MEDS: LEVETIRACETAM 500 MG/5 ML PO SCH (22:47)
[2017-01-04] MEDS: Acetaminophen 32.5 mg/mL 20 mL Liquid PO PRN (23:00)
[2017-01-05] MEDS: oxyCODONE 1 mg/mL 5 mL Liquid PO SCH ×9 (01:42→23:30)
--- NOTE | 2017-01-05 01:54 | NUR ---
refused vital signs patient kicking, moaning , upset with bp cuff. refused vital signs.
--- NOTE | 2017-01-05 02:15 | NUR ---
agitation patient agitated. mom in bed with patient. patient out of bed. put back in bed with mom and staff . patient moaning. upset. called for sitter. sitter at bedside. care ongoing Addendum: 01/05/17 at 0611 by NAHEED WOO RN patient much improved this morning. resting quietly. compliant with lab draw.
[2017-01-05 03:35] VITALS: BP 116/77; PULSE 94; RESP 20; O2SAT 91
[2017-01-05 05:58] LABS: BASOPHILS % (AUTO) 0.5 % (0-3); EOSINOPHILS % (AUTO) 0.5 % (0-5); MONOCYTES % (AUTO) 15.1 % (4-12); Mean Corpuscular Hemoglobin 31.9 pg (27.0-35.0); Mean Corpuscular Volume 93.1 fL (81-100); NEUTROPHILS % (AUTO) 68.6 % (40-74); Platelet Count 226 bil/L (150-400)
[2017-01-05] MEDS ORDERED: DIPH25CA6 PO (06:06)
--- NOTE | 2017-01-05 06:33 | NUR ---
pain medication patient refuses pain medication (oxycodone elixir 10mg) locked in [facility]. awaiting mom's return to try the medication again. Addendum: 01/05/17 at 0719 by NAHEED WOO RN patient refused pain medication. mom not available. wasted pain medication report to camila edward
--- NOTE | 2017-01-05 07:19 | NUR ---
care note explained to mom a sitter is not available and mom agreed to stay in room with daughter to ensure her safety.
[2017-01-05] MEDS: Heparin 5,000 Unit/mL Inj SUBQ SCH ×2 (08:30→20:30)
[2017-01-05] MEDS: diphenhydrAMINE 25 mg Capsule PO SCH ×2 (08:30→20:30)
--- NOTE | 2017-01-05 09:11 | NUR ---
Social Work-initial assessment: Data:See initial assessment. Pt is a 26 y/o female who was admitted on 01/04/17 for persistent tachycardia per H&P. Pt's insurance is [employer] and PCP is YANET Govea. EMR Reviewed. FERDINAND met with pt and mother at bedside, SW role explained. Pt has Developmental Delay. Mother reports they live in single level home on [address] where pt remains independent with basic ADLS. pt does not drive and does not use any DME. Pt has no HH or SNF history. Pt has no [place] [facility] care insurance or [place] benefits. SW discussed DPOA/advanced directive this has not been completed. Pt does not have capacity for self care at this time. Mom reports she is main caregiver, but pt has caregiver through [facility] services and pt's CM is Brandy Velarde, updated clinicals faxed. SW provided mom with discharge planning checklist and encouraged her to call with any questions,phone number placed on white board in room. Mom to transport pt home. No MD orders received at this time. No anticipated discharge needs. SW will continue to follow if needs arise. Assessment:pt who has developmental delay. Plan:Pt to likely discharge home with mother when medically stable via POV. Pt to continues with caregivers at home. No anticipated discharge needs. SW will continue to follow if needs arise. BAILEE Cordova Addendum: 01/05/17 at 0917 by ELENO RAMOS SS Amended: Links added.
[2017-01-05] MEDS: LEVETIRACETAM 500 MG/5 ML PO SCH ×2 (09:22→21:00)
[2017-01-05] MEDS: PHENobarbital 32.4 mg Tablet PO SCH (09:34)
[2017-01-05 09:38] VITALS: PULSE 125
[2017-01-05] MEDS: 0.9% Sodium Chloride 1,000 ML IV SCH ×2 (09:51→18:44)
[2017-01-05] MEDS: Acetaminophen 32.5 mg/mL 20 mL Liquid PO PRN (09:54)
[2017-01-05 10:29] VITALS: BP 112/72; PULSE 113; RESP 22; O2SAT 97
--- NOTE | 2017-01-05 11:57 | PCM.PNMED ---
Subjective Date of Service Jan 05, 2017 Subjective pt remained in sinus tach, even with pain control had temp 37.6 this in the evening felt very warm this AM, started abx empirically awaits UA Exam Vital Signs Vital Sign - Last Date Time Temp Pulse Resp B/P Pulse Ox O2 Delivery O2 Flow Rate FiO2 01/05/17 10:29 35.5 113 22 112/72 97 Room Air Intake and Output 01/04/17 01/04/17 01/05/17 Cumulative From/Thru 15:00 23:00 07:00 01/04/17 08:19 - 01/05/17 06:38 Intake Total 2000 ml 0 ml 1300 ml 3300 ml Balance 2000 ml 0 ml 1300 ml 3300 ml Intake Oral 0 ml 50 ml 50 ml IV Total 2000 ml 1250 ml 3250 ml # Voids 4 1 5 # Bowel Movements 0 0 Exam non-verbal, not diaphoretic, no JVD, no LAD, unable to open mouth, no bleeding externally nasally regular tachy, nl s1, s2 no mrg CTAB, no w,c S,ND,NT,normoactive BS+ warm, no edema, pulses 2/2 IVs and Medications Medications Reviewed: Medications were reviewed in detail Lab and Diagnostics Result Diagram: 01/05/17 0545 01/04/17 0945 Assessment & Plan Acute, active Persistent sinus tachycardia, POA, likely from underlying infection given febrile episode, probable UTI based on previous hx or intraoral infection from recent surgery -pt clinically remained stable, but persistently tachy, -start empiric abx to cover intraoral organisms, Unasyn 1g q6h -continue 100cc/hr NS, -cbc daily -UA, UCX via straight cath Chronic, stable Angelman syn, stable seizure d/o, resume home AEDs Dispo: will determine dispo based on signs such as po tolerability, subsiding tachycardia, fever, likely 1-2more days. diet:general dvt ppx:SCD Full code Time spent 35min Belen Coe MD Jan 05, 2017 11:53
[2017-01-05 13:36] LABS: APPEARANCE,URINE HAZY (CLEAR,HAZY); COLOR,URINE STRAW (YELLOW); OCCULT BLOOD,URINE TRACE (NEGATIVE)
[2017-01-05 13:37] LABS: UROBILINOGEN,URINE NORMAL (NORMAL)
[2017-01-05] MEDS: Ampicillin-Sulbactam Inj 3,000 MG in 0.9% Sodium Chloride 100 ML IV SCH ×2 (14:19→18:03)
--- NOTE | 2017-01-05 19:19 | NUR ---
Pain: Patients mouth pain has been controlled adequately with her Roxycodone scheduled Q3 hours. Patient becomes very agitated when she is uncomfortable . After receiving the pain med she is able to nap. Patients mother is in her room assisting with patients care and monitoring her comfort level.
[2017-01-05 20:05] VITALS: BP 116/75; PULSE 105; RESP 17; O2SAT 93
[2017-01-05] MEDS: Ondansetron 2 mg/mL 2 mL Inj IVPUSH PRN ×2 (20:52→22:07)
[2017-01-05] MEDS ORDERED: MetoCLOpramide 5 mg/mL 2 mL Inj IVPUSH PRN (22:35)
[2017-01-06] MEDS ORDERED: Promethazine Inj 12.5 MG in Dextrose 5%-Pha MIX 50 ML IV PRN (00:10)
[2017-01-06] MEDS: 0.9% Sodium Chloride 1,000 ML IV SCH ×2 (00:33→12:29)
[2017-01-06] MEDS: Ampicillin-Sulbactam Inj 3,000 MG in 0.9% Sodium Chloride 100 ML IV SCH ×4 (03:11→21:29)
[2017-01-06] MEDS: oxyCODONE 1 mg/mL 5 mL Liquid PO SCH ×7 (03:31→23:00)
[2017-01-06 04:50] VITALS: BP 124/79; PULSE 112; RESP 17; O2SAT 96
--- NOTE | 2017-01-06 05:54 | NUR ---
Vomit Pt vomited apprx 100cc bile mixed with dark red blood. Administered Zofran, not affective. notified. New order: Reglan, IV push, ineffective. Pt continued to vomit bile, undigested pieces of food, apprx (50 cc), dry heaving. MD notified. New order: Phenergan IV, effective. No further vomiting or dry heaving. Will continue to monitor.
[2017-01-06 06:07] VITALS: PULSE 108
[2017-01-06 07:26] LABS: BASOPHILS % (AUTO) 0.2 % (0-3); EOSINOPHILS % (AUTO) 1.6 % (0-5); MONOCYTES % (AUTO) 13.6 % (4-12); Mean Corpuscular Hemoglobin 31.7 pg (27.0-35.0); Mean Corpuscular Volume 92.9 fL (81-100); NEUTROPHILS % (AUTO) 68.1 % (40-74); Platelet Count 242 bil/L (150-400)
[2017-01-06] MEDS ORDERED: Ketamine 100 mg/mL 5 mL Inj IV ONE (07:45)
[2017-01-06] MEDS ORDERED: MethylprednisoLONE Sodium Succinate 40 mg/mL Inj IVPUSH ONE (07:45)
[2017-01-06] MEDS ORDERED: HYDROmorphone 0.5 mg/0.5 mL iSecure Syringe IVPUSH ONE (07:50)
[2017-01-06] MEDS ORDERED: Acetaminophen IV 1,000 MG in IV Premix 1 EACH IV PRN (07:55)
[2017-01-06 08:00] VITALS: PULSE 104
--- NOTE | 2017-01-06 08:00 | NUR ---
Pain and Swollen Tongue Pt crying out in pain, swinging arms and shaking hands, appears to be distressed and in pain. Mother reports pts tongue appears to be swollen. MD contacted, came to bedside for assessment. New orders given. IV Dilaudid given as ordered. Pt appears to be comfortable. resting quietly, no outward signs of distress. 1:1 sitter at bedside. Intentional rounding in place.
[2017-01-06] MEDS: LEVETIRACETAM 500 MG/5 ML PO SCH ×2 (08:30→21:40)
[2017-01-06] MEDS: diphenhydrAMINE 25 mg Capsule PO SCH ×2 (08:30→20:30)
[2017-01-06] MEDS: Heparin 5,000 Unit/mL Inj SUBQ SCH ×2 (08:30→20:30)
[2017-01-06] MEDS: PHENobarbital 32.4 mg Tablet PO SCH (08:30)
[2017-01-06] MEDS: MethylprednisoLONE Sodium Succinate 40 mg/mL Inj IVPUSH SCH ×4 (08:30→22:42)
--- NOTE | 2017-01-06 09:50 | PCM.PNMED ---
Subjective Date of Service Jan 06, 2017 Subjective pt had noticible swelling on bilaterally on cheeks, not eating, agitated, pt had episode of vomiting had another temp but less tachy BCX was not ordered yesterday, ordered today, Tiffanyyn is running, ENT. contacted, ordered CT con w/ con, with premed with steroid, benadryl awaits ID eval Exam Vital Signs Vital Sign - Last Date Time Temp Pulse Resp B/P Pulse Ox O2 Delivery O2 Flow Rate FiO2 01/06/17 06:07 108 01/06/17 04:50 36.8 17 124/79 96 Room Air Intake and Output 01/05/17 01/05/17 01/06/17 Cumulative From/Thru 15:00 23:00 07:00 01/04/17 08:19 - 01/06/17 05:48 Intake Total 885 ml 0 ml 4185 ml Balance 885 ml 0 ml 4185 ml Intake Oral 0 ml 50 ml IV Total 885 ml 4135 ml # Voids 3 3 11 # Bowel Movements 0 Exam non-verbal, not diaphoretic, agitated, waving hands, pulling out IV no JVD, significant swelling/td on R>L regular tachy, nl s1, s2 no mrg CTAB, no w,c S,ND,NT,normoactive BS+ warm, no edema, pulses 2/2 IVs and Medications Medications Reviewed: Medications were reviewed in detail Lab and Diagnostics Result Diagram: 01/06/17 0550 01/06/17 0550 Assessment & Plan Acute, active Persistent sinus tachycardia, POA, likely from recent tooth extraction, complicated by intral oral infection, possible abscess, hematoma, UA unremarkable, -tachycardia, wbc trending down, although clinicaly pt showed worsening swelling and tenderness on cheeks. still not behaves normally -awaits BCX, -Unasyn 1g q6h started 01/05, continue for now, appreciate ID eval. -continue 100cc/hr NS, -cbc daily -given contrast allergy(hives), will do protocol with solu-medrol 40mg [id number], last does with benadryl, ketamine, then CT face with CE -case was discussed with , Radiology, ENT, appreciate evaluation -zofran for n/v Chronic, stable Angelman syn, stable seizure d/o, resume home AEDs Dispo: diet:general dvt ppx:SCD Full code Time spent 35min Belen Coe MD Jan 06, 2017 09:37
--- NOTE | 2017-01-06 11:00 | NUR ---
CT pre medication Per Dr Coe - CT of head with contrast, Reaction history to contrast in the past. The following protocol to be completed prior to completion of imaging, Pre treat pt with IV Solu-Medrol 40 mg q [id number], last dose to be given with IV Benadryl, and Ketamine, then CT face with CE. First dose given at 10:30, 2nd dose to be given at 1630 and 3rd dose to be given at 2230 with [address] IV medications. CT ordered to be completed at 2330 01/06. 1:1 sitter at bedside. Intentional rounding in place.
--- NOTE | 2017-01-06 12:34 | NUR ---
Case Management: Clarification of patient status: inpatient per MD order on 01/06/17. Nia Salas RN
[2017-01-06] MEDS: HYDROmorphone 1 mg/mL Inj IVPUSH PRN ×2 (13:59→20:02)
--- NOTE | 2017-01-06 15:12 | NUR ---
Social Work-readiness for discharge/multidisciplinary rounds: Data:EMR reviewed. Pt is on day 2 of hospitalization for tachy per H&P. Pt is not medically stable atnicpiate 1-2 more days. Pt has DD at baseline and resides at home wit her mother. Pt also has caregivers that come in. No MD orders received at this time. No anticipated discharge needs. SW will continue to follow if needs arise. Assessment:Pt who has support at home. Plan:Pt to discharge home when medically stable via POV. Pt to continue with caregiver assistance and mother's support. No anticipated discharge needs. SW will continue to follow if needs arise. BAILEE Cordova
[2017-01-06 23:09] VITALS: BP 163/92; PULSE 114; RESP 17; O2SAT 97
--- NOTE | 2017-01-06 23:16 | NUR ---
Restless Pt is very restless and agitated. Pulling out IV lines and hitting side-rails. 1:1 sitter provided for safety. Prepared for upcoming CT. Administered Solu-medrol 40mg and Benadryl 25mg [address]. Administered Ketamine as ordered by . Pt fall asleep. Vitals taken and recorded. BP: 163/92 Pulse: 114 O2: 97 and Temperature: 36.7. CT notified, and will transport the pt @2325 hours. Continuing to monitor.
[2017-01-06 23:46] VITALS: BP 130/85; PULSE 80; RESP 16; O2SAT 98
[2017-01-07 00:44] VITALS: BP 142/86; PULSE 75; RESP 16; O2SAT 95
[2017-01-07] MEDS: oxyCODONE 1 mg/mL 5 mL Liquid PO SCH ×4 (02:00→11:44)
[2017-01-07] MEDS: Ampicillin-Sulbactam Inj 3,000 MG in 0.9% Sodium Chloride 100 ML IV SCH ×2 (02:57→09:00)
[2017-01-07] MEDS: HYDROmorphone 1 mg/mL Inj IVPUSH PRN (03:18)
[2017-01-07] MEDS: 0.9% Sodium Chloride 1,000 ML IV SCH ×2 (03:23→09:24)
--- NOTE | 2017-01-07 06:19 | NUR ---
AGITATED/RESTLESS Pt restless and agitated. Attempting to pull out IV line and hit head against side-rail ,hitting staff members and yelling. 1:1 sitter provided for safety. Administered Dilaudid IV push for pain. Brief changed. MD notified. New order: Dolores bed ordered for patient safety. Tabby, pts mom aware and agreeable. Pt in soma bed at 0420 with sitter at bedside. Will continue to monitor.
--- NOTE | 2017-01-07 07:19 | NUR ---
IV fluids Pt restless and agitated. Pulling on IV line, trying to remove while thrashing arms around. Unhooked IV from patient to prevent line from being pulled out. Attempted to restart fluids apprx every hour during the night, unsuccessful even after placing pt in Soma bed. Sitter at bedside. Passed on the day shift RN.
[2017-01-07 07:35] LABS: BASOPHILS % (AUTO) 0.2 % (0-3); EOSINOPHILS % (AUTO) 0.3 % (0-5); Mean Corpuscular Hemoglobin 31.9 pg (27.0-35.0); Mean Corpuscular Volume 91.6 fL (81-100); NEUTROPHILS % (AUTO) 76.9 % (40-74); Platelet Count 333 bil/L (150-400)
[2017-01-07 07:52] LABS: Magnesium 1.6 mg/dL (1.6-2.6); Phosphorus 3.3 mg/dL (2.5-4.9)
[2017-01-07] MEDS: Heparin 5,000 Unit/mL Inj SUBQ SCH (08:30)
[2017-01-07] MEDS: diphenhydrAMINE 25 mg Capsule PO SCH ×2 (08:30→09:16)
[2017-01-07] MEDS: LEVETIRACETAM 500 MG/5 ML PO SCH (09:16)
[2017-01-07] MEDS: PHENobarbital 32.4 mg Tablet PO SCH (09:16)
--- NOTE | 2017-01-07 10:05 | DRSVH ---
PROCEDURE: CT FACE WITH CONTRAST ([id number]) INDICATIONS: possible abscess bleeding s/p tooth extract TECHNIQUE: After the administration of intravenous contrast, 3.0 mm axial sections acquired from the mid-neck to the frontal sinuses, with coronal reformatting. For radiation dose reduction, the following was use d: automated exposure control. COMPARISON: None. FINDINGS: Image quality: Excellent. Soft tissues: No masses nor fluid collections. No enlarged lymph nodes. Mild subcutaneous edema is seen diffusely within the face and upper neck. Vascular: Visualized vascular structures appear patent throughout. Bony vascular foramina and canal s appear normal. Bones: Facial bones appear intact, without fractures. Dental resection cavities within the left post erior mandible, as well as the superior maxillary bone bilaterally are present, compatible with posts urgical sequelae. There is focal absence of maxillary bone overlying the left maxillary resection cav ity, with consequent communication between this cavity and the maxillary sinus. Visualized portions o f the skull base and auditory canals also appear normal. Sinuses: There is mild bilateral left greater than right maxillary sinus mucosal thickening. Mastoid air cells are aerated. IMPRESSION: 1. Post surgical sequelae. 2. 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 There is associated left greater than right maxillary sinus opacification. ENT consultation may be helpful for further assessment. 3. Subcutaneous edema versus cellulitis. 4. Findings discussed with Dr. Leon on 01.07.17 at 1000 hrs. Dictated by: Valerie Garcia M.D. on 01/07/2017 at 9:58 Approved by: Valerie Garcia M.D. on 01/07/2017 at 10:03
[2017-01-07 11:14] VITALS: PULSE 84; RESP 16; O2SAT 97
--- NOTE | 2017-01-07 11:15 | NUR ---
Unable to obtain blood pressure reading due to patient constantly moving
[2017-01-07] MEDS ORDERED: AMOX600S46 PO (11:46)
--- NOTE | 2017-01-07 11:50 | NUR ---
Meds Pt's mother requested pt received half the dose (Oxycodone 5mg vs 10 mg), "she's not thriving in pain like yesterday."
[2017-01-07] MEDS ORDERED: OXYM30SP19 NS (12:01)
--- NOTE | 2017-01-07 12:13 | PCM.DIMED ---
Discharge Instructions Date of Service Jan 07, 2017 Dates of Hospitalization Jan 04, 2017 at 13:11 Discharge Diagnosis Discharge Diagnosis Acute dx Persistent sinus tachycardia, likely multifactorial:post-op pain and bleeding from recent tooth extraction, possible intral oral infection Chronic dx Angelman syn seizure d/o Diet Discharge Diet: No restrictions Activity Discharge Activity: No restrictions Patient Instructions Patient Instructions You were hospitalized with episode of bleeding and possible infection after tooth extraction. Your condition improved with supportive treatment with IV fluid, antibiotics, pain control. Please note that images reviewed with the doctor at , recommendation was to continue oral antibiotics, Augmentin 600mg twice a day for 10more days and use Afrin spray for nasal bleeding as needed. Please resume Macrobid once you finish Augmentin Please follow up with the doctor at as scheduled. Please control pain better if necessary, increase dose of Oxycodone 5-15mg every 3hours as needed Follow-up Provider: Marquita Khan PA-C Follow-up with PCP in: 1 week Belen Coe MD Jan 07, 2017 12:06
[2017-01-07] MEDS ORDERED: OXYC5SOL11 PO (12:15)
--- NOTE | 2017-01-07 13:06 | NUR ---
Discharge Pt discharge home with mother via private vehicle. Pt's mother verbalized understanding of discharge, new Rx, and follow up instructions, personal belongings accounted for and left with pt. Home meds retrieved from pharmacy and given to mother.
--- NOTE | 2017-01-07 14:07 | PCM.DC.MED ---
Discharge Summary Date of Service Jan 07, 2017 Dates of Hospitalization Date of Hospital Admission Jan 04, 2017 at 13:11 Date of Discharge: Jan 07, 2017 Providers: Admitting Physician: Belen Young MD Primary Care Physician: Marquita Khan PA-C Attending Physician: Belen Young MD Diagnosis at Time of Discharge Diagnosis at Time of Discharge Acute dx Persistent sinus tachycardia, likely multifactorial:post-op pain and bleeding from recent tooth extraction, possible intral oral infection Chronic dx Angelman syn seizure d/o Consultations Infectious disease Procedures XRay, CTs & MRIs PROCEDURE: CT FACE WITH CONTRAST ([id number]) INDICATIONS: possible abscess bleeding s/p tooth extract TECHNIQUE: After the administration of intravenous contrast, 3.0 mm axial sections acquired from the mid-neck to the frontal sinuses, with coronal reformatting. For radiation dose reduction, the following was used: automated exposure control. COMPARISON: None. FINDINGS: Image quality: Excellent. Soft tissues: No masses nor fluid collections. No enlarged lymph nodes. Mild subcutaneous edema is seen diffusely within the face and upper neck. Vascular: Visualized vascular structures appear patent throughout. Bony vascular foramina and canals appear normal. Bones: Facial bones appear intact, without fractures. Dental resection cavities within the left posterior mandible, as well as the superior maxillary bone bilaterally are present, compatible with postsurgical sequelae. There is focal absence of maxillary bone overlying the left maxillary resection cavity, with consequent communication between this cavity and the maxillary sinus. Visualized portions of the skull base and auditory canals also appear normal. Sinuses: There is mild bilateral left greater than right maxillary sinus mucosal thickening. Mastoid air cells are aerated. IMPRESSION: 1. Post surgical sequelae. 2. Focal absence of bone the left maxillary resection cavity from the left maxillary sinus. There is associated left greater than right maxillary sinus opacification. ENT consultation may be helpful for further assessment. 3. Subcutaneous edema versus cellulitis. 4. Findings discussed with Dr. Leon on 01.07.17 at 1000 hrs. Dictated by: Valerie Garcia M.D. on 01/07/2017 at 9:58 Approved by: Valerie Garcia M.D. 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 As per her caregiver mother. Patient was in usual state of health until yesterday, patient underwent wisdom teeth removal under general anesthesia. Surgical report from , showed uneventful perioperative course. There was minimal bleeding, no respiratory compromise. Patient safely went home around 8 PM Report from US also showed that pt has supratherapeutic phenobarb level, keppra level was pending. However this morning patient woke up with persistent nosebleeding, quantify was unknown, but "not a lot". mother was concerned and called , recommended to come to the emergency department. However patient went to our facility ED given long distance, other fernandez mother didn't notice any other changes in her urine color or smell. taking macrobid for ppx as pt had 5UTI in the past. denied diarrhea rather constipated at baseline, required rectal suppository every 2-3days. there was no reported seizure. ED VS BP very stable 130/80, but -403l, 97% on RA, afebrile. pt received 1liter IVF. examined mouth and nose with ketamine given. no active bleeding noticed. labs showed stable cbc. no uremia, TFT WNL. Hospital Course Tachycardia was initially believed to be from post-op pain or dehydration. EKG showed sinustachycardia. It was difficulty to determine given patient's baseline [id number]. pt was given increased dose oxycodone and dilaudid, however, noted to have persistent tachycardia with more swelling on mandible. pt developed intermittent mild degree fever, BP remained stable. pt was empirically started Unasyn and CT face with CE obtained which showed post-op sequelae, soft tissue edema but no obvious abscess or gangrene, and also focal absence of bone the left maxillary resection cavity from the left maxillary sinus. Images were reviewed with physician at per , recommended 10days of Amoxacillin and Afrin for epistaxsis as needed. Tachycardia resolved with supportive tx with IVF, better pain control, abx, able to tolerate diet, which seems to be back to baseline. Mother was comfortable taking patient back to home, follow up with as scheduled. Acute, active Persistent sinus tachycardia, POA, likely from recent tooth extraction, complicated by intral oral infection, possible abscess, hematoma, UA unremarkable, -tachycardia, wbc trending down, although clinicaly pt showed worsening swelling and tenderness on cheeks. still not behaves normally -awaits BCX, -Unasyn 1g q6h started 01/05, continue for now, appreciate ID cari. -continue 100cc/hr NS, -cbc daily -given contrast allergy(hives), will do protocol with solu-medrol 40mg [id number], last does with benadryl, ketamine, then CT face with CE -case was discussed with , Radiology, ENT, appreciate evaluation -zofran for n/v Chronic, stable Angelman syn, stable seizure d/o, resume home AEDs Dispo: diet:general dvt ppx:SCD Full code Exam Vital Signs (Last) Date Time Temp Pulse Resp B/P Pulse Ox O2 Delivery O2 Flow Rate FiO2 01/07/17 11:14 36.6 84 16 97 Room Air 01/07/17 00:44 142/86 Exam Patient was examined on the day of discharge Test 01/04/17 09:45 01/05/17 11:45 01/07/17 06:58 Thyroid Stimulating Hormone (TSH) 0.607uIU/mL (0.450-4.500) Free Thyroxine 1.24ng/dL (0.82-1.77) Urine Color Straw (YELLOW) Urine Appearance Hazy (CLEAR,HAZY) Urine pH 6.0 (5.0-8.0) Urine Specific [place] 1.030 (1.003-1.035) Urine Protein 30mg/dL (NEG,TRACE) Urine Glucose (UA) Negativemg/dL (NEGATIVE) Urine Ketones 80mg/dL (NEGATIVE) Urine Occult Blood Trace (NEGATIVE) Urine Nitrite Negative (NEGATIVE) Urine Bilirubin Negative (NEGATIVE) Urine Urobilinogen Normalmg/dL (NORMAL) Urine Leukocyte Esterase Negative (NEGATIVE) Urine RBC 0-2/hpf (0-2) Urine WBC 0-5/hpf (0-5) Urine Epithelial Cells Occasional/hpf (NONE-MOD) Urine Crystals None seen (NONE SEEN) Urine Bacteria Few/hpf (NONE-FEW) Urine Hyaline Casts None/lpf (NONE) Urine Granular Casts None seen (NONE SEEN) Urine Waxy Casts None seen (NONE SEEN) Urine Red Blood Cell Casts None seen (NONE SEEN) Urine White Blood Cell Casts None seen (NONE SEEN) Urine Mucus Present (None Seen) Urine Trichomonas None seen (NONE SEEN) Urine Yeast None (NONE SEEN) Urinalysis Comment None Urine Culture Reflexed Not indicated White Blood Count 10.9th/mm3 (3.8-10.1) Red Blood Count 3.67mil/mm3 (3.90-5.20) Hemoglobin 11.7g/dL (12.0-15.6) Hematocrit 33.6% (35.0-46.0) Mean Corpuscular Volume 91.6fL (81-100) Mean Corpuscular Hemoglobin 31.9pg (27.0-35.0) Mean Corpuscular Hemoglobin Concent 34.8% (32.0-37.0) Red Cell Distribution Width 11.9% (12.3-15.4) Platelet Count 333bil/L (150-400) Neutrophils (%) (Auto) 76.9% (40-74) Lymphocytes (%) (Auto) 12.7% (14-46) Monocytes (%) (Auto) 9.0% (4-12) Eosinophils (%) (Auto) 0.3% (0-5) Basophils (%) (Auto) 0.2% (0-3) Sodium Level 138mEq/L (134-144) Potassium Level 4.6mEq/L (3.5-5.2) Chloride Level 102mEq/L (97-108) Carbon Dioxide Level 13mmol/L (18-29) Blood Urea Nitrogen 7mg/dL (6-20) Creatinine 0.46mg/dL (0.57-1.00) Estimat Glomerular Filtration Rate 235mL/min (>59) Glucose Level 71mg/dL (60-99) Calcium Level 9.3mg/dL (8.5-10.1) Phosphorus Level 3.3mg/dL (2.5-4.9) Magnesium Level 1.6mg/dL (1.6-2.6) Total Bilirubin 0.2mg/dL (0.0-1.2) Aspartate Amino Transf (AST/SGOT) 16U/L (0-50) Alanine Aminotransferase (ALT/SGPT) 10U/L (0-32) Alkaline Phosphatase 76U/L (25-150) Total Protein 7.6g/dL (6.4-8.4) Albumin 4.0g/dL (3.4-5.0) Procalcitonin 0.04ng/mL (0.00-0.08) Discharge Medications Discharge Medications Amoxicillin/Clav K 600-43 mg Susp (Augmentin ES 600 Susp) 600 Mg/5 Ml Susp.recon 600 MG PO BID Prescribed by: BELEN YOUNG MD Bisacodyl (Dulcolax Rectal) 10 Mg Supp.rect 10 MG RC Every other day (Reported) Levetiracetam Liquid (Keppra Liquid) 100 Mg/Ml Soln 500 MG PO BID Prescribed by: TANYA POLK DO Oxymetazoline HCl (Nasal Eustace Sinus) 30 Ml Eustace 30 ML NS BID Prescribed by: BELEN YOUNG MD Phenobarbital (Phenobarbital) 32.4 Mg Tablet 32.4 MG PO DAILY (Reported) diphenhydrAMINE HCl (Benadryl) 25 Mg Capsule 50 MG PO BID (Reported) oxyCODONE (oxyCODONE) 5 Mg/5 Ml Solution 10 MG PO Q3H Prescribed by: BELEN YOUNG MD As needed Acetaminophen Liquid (Acetaminophen Liquid) 160 Mg/5 Ml Solution 160 MG PO Q4H PRN PRN For Fever (Reported) Ibuprofen (Ibuprofen) 400 Mg Tablet 400 MG PO QID PRN PRN For Pain (Reported) Miscellaneous Medications ([ibuprofen]) (Reported) Oxycodone HCl (Oxycodone HCl) 10 Mg/0.5 Ml Syringe 10 MG PO (Reported) Followup Plan Disposition: home Discharge Diet: No restrictions Discharge Activity: No restrictions Patient Instructions You were hospitalized with episode of bleeding and possible infection after tooth extraction. Your condition improved with supportive treatment with IV fluid, antibiotics, pain control. Please note that images reviewed with the doctor at , recommendation was to continue oral antibiotics, Augmentin 600mg twice a day for 10more days and use Afrin spray for nasal bleeding as needed. Please resume Macrobid once you finish Augmentin Please follow up with the doctor at as scheduled. Please control pain better if necessary, increase dose of Oxycodone 5-15mg every 3hours as needed Follow-up Provider: Marquita Khan PA-C Follow-up with PCP in: 1 week Time spent 65min Belen Young MD Jan 07, 2017 14:07
--- NOTE | 2017-01-07 14:17 | CONS ---
[address] [address] CONSULTATION REPORT PATIENT: MARIA ESTHER MCNEIL : 1990 MR#: [id number] ADMIT: 01/04/2017 JOB ID: [id number] DATE OF SERVICE: 01/07/2017 INFECTIOUS DISEASE CONSULTATION: I thank Dr. Coe for this timely consult. REASON FOR CONSULTATION: Possible maxillary facial infection in a 26-year-old young woman with Angelman syndrome. HISTORY OF PRESENT ILLNESS: The patient is an extremely unfortunate 26-year-old woman with Angelman syndrome. This is a congenital syndrome with some overlap with Prader-Willi syndrome, inherited through the maternal path, which manifests with profound developmental delay as well as ataxia and seizures. The patient is cared for at home by her mother and is minimally ambulatory and requires a great deal of care. In any event, the patient had an elective wisdom tooth resection performed by Dr. Trivedi at the [facility] on January 03. This was apparently uncomplicated and the patient's mother was told by the surgeon postop that no followup should be required following this routine surgery. Postoperatively the patient developed some bleeding from the nose as well as bruising over the face and below the eyes which would not be surprising perhaps following this surgery. The [facility] was contacted and they recommended the patient come to the nearest facility for evaluation of the bleeding. The patient was subsequently admitted here on January 04, for this bleeding. At that time she was found to be tachycardic and concerns were raised about whether her face was asymmetric or perhaps infected, although examination of this patient is very difficult and she cannot provide any history whatsoever. Because of concerns about infection, the patient was started on Unasyn after appropriate cultures were done. Subsequently a CT scan was also ordered. Infectious Disease consultation is requested at this time regarding management. Yesterday, we came by to see the patient when she was agitated and in fact was in the process of ripping off all of her chest leads for electrocardiographic monitoring. She subsequently ripped out her IV and there have been continual struggles to keep an IV in place to give her the IV Unasyn, which was initiated out of concern for infection. Today the patient is somewhat calmer, though still yelling a lot, and still not happy about her IV, which has once again been removed. There is no history whatsoever available from the patient as she is nonverbal. The patient's mother is able to supply some details regarding the events of the past four or five days. At no point has the patient seemed short of breath or had any difficulty breathing. She continues to be able to eat and in fact this morning has already had both solids and liquids without apparent difficulty. As mentioned, there is absolutely no history from the patient herself. PAST MEDICAL HISTORY: 1. Angelman syndrome. 2. Seizure disorder. 3. Profound developmental delay, both mental and physical. SOCIAL HISTORY: The patient lives with her mother in the local area. She does not get out much, obviously. She neither smokes nor drinks, nor has any other bad habits. FAMILY HISTORY: Cannot be obtained at this time and certainly not from this patient. REVIEW OF SYSTEMS: Cannot be obtained from the patient as she is nonverbal and agitated. PHYSICAL EXAMINATION: Reveals an agitated nonverbal young woman who is capable of movement of all four limbs, especially the upper extremities, and grabs at IVs and examiners and other objects. She does not seem to follow commands in a consistent manner and according to her mother this is her baseline. Temperatures have been consistently normal, right now 36.5, pulse 75, respiratory rate 16, blood pressure 142/86, saturating well on room air. It is difficult to say whether she is in distress or not. She does not appear to be in physical distress. She is intermittently quite agitated. Examination of the head and face is notable for ecchymosis below both eyes and subtle maxillary bilateral ecchymoses as well. In palpating the patient's face, I cannot find any focal tenderness or sinus tenderness on either side. This is a difficult exam as the patient does not hold still. There is nothing to suggest frontal sinusitis, either, and she has good movement of both of her eyes. Examination of the neck is essentially unremarkable, though again very difficult to examine. Her lungs are clear. Cardiac tones regular rate and rhythm, tachycardic. Abdomen appears unremarkable, though difficult to examine. Lower extremities are often crossed. They appear somewhat wasted as opposed to her upper extremities. We did not see her walk but her mother says she can walk for several feet but no more due to ataxia which is typical of this syndrome. No skin rash is noted. She has torn out her peripheral IVs and therefore does not have one at this point. The remainder of the exam is impossible due to patient agitation. LABORATORIES: Include white count 10,900, platelet count 333,000. Creatinine is 0.46. LFTs totally normal. Procalcitonin 0 x3. Urinalysis 0-5 white cells. Blood cultures negative. IMAGING: CT scan of the face was carefully reviewed and discussed in great detail with Dr. Garcia, as well as Dr. Bolanos at the [facility], which shows possible absence of bone the left maxillary resection area from the left maxillary sinus. There may also be some subtle degree of sinus opacification in that maxillary sinus. IMPRESSION: This is an extremely complicated case, largely because of the patient's underlying Angelman syndrome. I contacted the [facility] and eventually made contact with a member of the surgical team, Dr. Bolanos, who operated with under the direction of Dr. Chilel on Tuesday. He told me that such small bone defects are not uncommon after wisdom tooth extraction and they usually heal quite well. He stated that he thought that the nasal bleeding was because of this communication, in fact, and that in and of itself is not too surprising nor alarming. He offered that the standard treatment would be 10 days of an oral antibiotic such as Augmentin directed at typical pathogens, as well as three days in Afrin, and that the patient should absolutely not sip through a straw nor sneeze against closed nose to avoid increasing the pressure within the sinuses. RECOMMENDATIONS: 1. I would discontinue the IV Unasyn at this time. 2. I would allow the patient to go home on Augmentin 875 p.o. b.i.d., and this can be the liquid equivalent, for about seven more days to complete 10 full days of therapy counting the Unasyn. 3. Afrin x3 days as was recommended by Dr. Bolanos. 4. Follow up with the [facility] orofacial group would be p.r.n., they state, but they are happy to see her if there are any concerns about her followup situation. 5. Dr. Bolanos stated that the mother should be reassured that this is not a profound or unusual complication of this type of surgery and that the patient is likely to do quite well. Thank you very much for this interesting consult. ID will go ahead and sign off at this time. Note this case discussed in detail with Dr. Coe.
== END 2017-01-07 13:13 | disposition home or self-care (01) | DRG 309 ==
LOC: SED 08:19 → MPC 13:11 → OBSVTOIN 13:11
PROVIDERS: ADMIT Internal Medicine; ATTEND Internal Medicine
DX: R00.0 Tachycardia, unspecified (principal); Q93.5 Other deletions of part of a chromosome; J01.00 Acute maxillary sinusitis, unspecified; R62.50 Unspecified lack of expected normal physiological development in childhood; E86.0 Dehydration; G40.909 Epilepsy, unspecified, not intractable, without status epilepticus; T88.8XXA Other specified complications of surgical and medical care, not elsewhere classified, initial encounter; R45.1 Restlessness and agitation